=== PATIENT | female | born 1940 | race Caucasian/White ===

== ENCOUNTER → 2016-08-18 | Outpatient (CLI) | payer MEDICARE, BC ==
[~2016-08-18] MED LIST: ASPIRIN EC81 MG PO; COSOPT DROPS 1010 ML OPHTH; DITROPAN5 MG PO; FOLBEE TABLET1 EACH PO; GLUCOPHAGE500 MG PO; HAIR, SKIN & N1 EACH PO; LATANOPROST2.5 ML OPHTH; LIPITOR40 MG PO; OCUVITE EYE +1 EACH PO; PRINIVIL (ZESTRI5 MG PO; TOPROL XL25 MG PO
== END | disposition disaster alternative care site (69) ==
LOC: GRAD 15:33
DX: C18.9 Malignant neoplasm of colon, unspecified (principal); R91.8 Other nonspecific abnormal finding of lung field; E27.8 Other specified disorders of adrenal gland

== ENCOUNTER → 2016-08-29 | Outpatient (CLI) | payer MEDICARE, BC | END | disposition disaster alternative care site (69) | LOC: GKIC 11:23 | DX: C18.9 Malignant neoplasm of colon, unspecified (principal); R91.8 Other nonspecific abnormal finding of lung field | CPT/HCPCS: A9552 ==

== ENCOUNTER 2016-09-08 11:36 | Observation (INO) | payer MEDICARE, BC ==
[~2016-09-08] VITALS: Ht 170.2 cm; Wt 62.2 kg
--- NOTE | ~2016-09-08 | HP ---
PATIENT'S NAME: JODI FARRIS [facility] AGE: 75 Y [address] ROOM: [address] [place], [place] [id number] LOCATION: GPCU ADMIT DATE: 09/08/2016 History & Physical DISCHARGE DATE: FAMILY PHYSICIAN: TONY ASKEW MD ATTENDING PHYSICIAN: Jaz Anderson DATE OF SERVICE: CHIEF COMPLAINT: Left pneumothorax following CT-guided lung biopsy. HISTORY OF PRESENTING ILLNESS: This 75-year-old white female with a previous history of coronary artery disease, hypertension, and recent colon cancer was admitted to [facility] this evening after a procedure for left lung biopsy. Briefly, she had been evaluated by her primary care provider last fall with routine screening colonoscopy. She was found to have a lesion and was forwarded to [place] to see a comsec manager. She was subsequently then referred to a facility in [place] where she underwent segmental colectomy for a presumed colon cancer. She had been scheduled to follow up with Oncology regarding the lesion here, but had not had any adjuvant treatments to this point. During her evaluation by Oncology, she was imaged and found to have a left lung nodule. She did undergo a PET scan testing which revealed activity at the left lung site but no other systemic lesions apparently. This was all per the patient's own recollection. Today, she was brought to [facility] on an outpatient basis for CT-guided lung biopsy by Dr. Tafoya. The procedure was relatively uncomplicated, however, she did develop a left pneumothorax subsequently. Although she was oxygenating adequately, she was placed on supplemental oxygen and it was recommended that she be admitted to [facility] on an observation basis for definitive evaluation and management. On her arrival to the floor, she reports feeling "okay." She does complain of a little pain in the mid back. She denies any significant shortness of breath. She has not had any other chest pains recently. She denies headaches, dizziness, or lightheadedness. No nausea. Her appetite has been good. No difficulty with chewing or swallowing. She eats and drinks a regular diet. She does not monitor her blood sugars, but was recently placed on metformin. Bowels have been moving regularly. She denies any urinary complaints. No numbness, tingling, or weakness in her extremities or any other associated physical or constitutional complaints. ALLERGIES: NO KNOWN DRUG ALLERGIES. PATIENT'S NAME: JODI FARRIS [facility] AGE: 75 Y [address] ROOM: [id number] [place], [place] [address] [facility] ADMIT DATE: 09/08/2016 History & Physical DISCHARGE DATE: FAMILY PHYSICIAN: TONY ASKEW MD ATTENDING PHYSICIAN: Jaz Anderson ILLNESSES: 1. Colon cancer status post resection. 2. Coronary artery disease status post PCI with stenting 4 years ago. 3. Essential hypertension. 4. Diabetes mellitus type 2. 5. Osteoarthritis, generalized. 6. Stress type urinary incontinence. CURRENT MEDICATIONS: 1. Metoprolol 12.5 mg p.o. q.a.m. 2. Lisinopril 5 mg p.o. daily. 3. Metformin 250 mg p.o. daily. 4. Aspirin 81 mg p.o. daily. 5. Oxybutynin 5 mg p.o. daily. 6. Atorvastatin 40 mg p.o. at bedtime. 7. Multivitamin daily. 8. Ocuvite eye vitamin daily. 9. Cosopt ophthalmic drops 1 drop each eye b.i.d. 10. Latanoprost ophthalmic drops 1 drop each eye q.p.m. FAMILY HISTORY: Significant for ovarian cancer in her mother. Her aunt also had breast cancer. Mother had coronary artery disease. Her father from an [place]. SOCIAL HISTORY: She is and currently lives in [place]. She does have a 30+ pack year history of smoking tobacco, but has been quit for 4 years. There is occasional history of alcohol use. REVIEW OF SYSTEMS: As per HPI. All other organ systems reviewed and are negative. OBJECTIVELY: VITAL SIGNS: Temperature 98.3, pulse 66, respirations 18, blood pressure 118/59, O2 saturation 92% on 3 L per nasal cannula. GENERAL: She is frail, but not ill-appearing, lying in the bed, in no acute distress. SKIN: Supple, pink, warm, dry. There are no obvious rashes. HEENT: Otherwise, normocephalic. Sclerae nonicteric. Pupils are equal, round, and reactive to light and accommodation. Extraocular movements appear intact. Nasal turbinates normal in appearance. Oropharynx clear. Mucous membranes are pink and moist. NECK: Supple. No masses or adenopathy. No thyromegaly. No JVD. HEART: No carotid bruits are heard. Chest wall is symmetrical. Heart is PATIENT'S NAME: JODI FARRIS [facility] AGE: 75 Y [address] ROOM: [id number] [place], [place] [id number] LOCATION: GPCU ADMIT DATE: 09/08/2016 History & Physical DISCHARGE DATE: FAMILY PHYSICIAN: TONY ASKEW MD ATTENDING PHYSICIAN: Jaz Anderson regular without murmurs. LUNGS: Diminished at the left lung field with cavernous lungs sounds. Good air movement bilaterally. No wheezes or crackles. ABDOMEN: Soft, nontender. Bowel sounds present. No masses or hepatosplenomegaly. AND RECTAL: Not done. EXTREMITIES: Display no significant clubbing, cyanosis, or edema. NEUROLOGICAL: No focal deficits. LABORATORY AND X-RAY DATA: None available. ASSESSMENT AND PLAN: 1. Left pneumothorax following CT-guided lung biopsy, clinically stable. We will admit for observation. She has already been started on some supplemental oxygen. We will plan to continue with oxygen 3 L per nasal cannula and try to maintain saturations greater than 90%. She does have some risk of hypercapnia given her significant history of tobacco use although there is no documented history of chronic obstructive pulmonary disease. We will encourage good pulmonary hygiene and mobilize carefully. We will plan to repeat chest x-ray in the morning as already scheduled. Depending on her clinical progress, we will consider discharge to home as soon as she is clinically stable versus Pulmonology consultation. I discussed all of this including the possibility of worsening and the need for additional surgical management and she expressed understanding and agreement. 2. Left lung nodule. She is currently undergoing neoplastic workup. We will await evaluation by Hematology and Oncology. She will likely be followed up on an outpatient basis. 3. Colon cancer status post resection, also clinically stable. There is no other evidence for active disease. Favor continued clinical follow up. 4. Coronary artery disease, clinically asymptomatic and stable. Continue with medical management including aspirin therapy, beta-wolf therapy, and statin therapy. 5. Essential hypertension. Appears to be adequately controlled. Plan continue clinical follow up. 6. Diabetes mellitus type 2. We will manage with Accu-Cheks and sliding scale insulin while she is inpatient. We will hold the metformin until discharge. 7. Osteoarthritis, generalized symptomatic treatment. We will use Tylenol. Avoid nonsteroidal antiinflammatory drugs. 8. Deep venous thrombosis prophylaxis. We will utilize serial compression devices while she is bed-bound and mobilize her as soon as she is physically able. Depending on her clinical progress, we will hold off on heparin or Lovenox at least the first 12 hours given the recent biopsy. PATIENT'S NAME: JODI FARRIS [facility] AGE: 75 Y [address] ROOM: [place] [id number] LOCATION: [facility] ADMIT DATE: 09/08/2016 History & Physical DISCHARGE DATE: FAMILY PHYSICIAN: TONY ASKEW MD ATTENDING PHYSICIAN: Jaz Anderson Total time spent 45 minutes. MD OVIDIO SHANNON/modl /[id number] D: [id number] T: [id number] HISTORY & PHYSICAL
[2016-09-08 12:19] LABS: BASOPHIL % 0.7 %; EOSINOPHIL # 0.1 K/uL (0.0-0.5); EOSINOPHIL % 0.8 %; HEMATOCRIT 41.8 % (33.0-46.0); HEMOGLOBIN 14.3 g/dL (10.0-15.0); IMMATURE GRANULOCYTE % 0.2 %; LYMPHOCYTE # 1.8 K/uL (0.8-4.0); LYMPHOCYTE % 29.6 %; MCH 31.2 pg (27.0-34.0); MCHC 34.2 gm/dL (32.0-36.5); MCV 91.3 fl (83.0-98.0); MONOCYTE # 0.6 K/uL (0.0-1.0); MONOCYTE % 10.3 %; MPV 9.1 fl (9.4-12.4); NEUTROPHIL # (ANC) 3.5 K/uL (1.8-7.8); NEUTROPHIL % 58.4 %; NRBC % 0 /100WBC (0-0.00); PLATELET COUNT 330 K/uL (150-450); RBC 4.58 M/uL (3.50-5.50)
[2016-09-08 12:26] LABS: PROTIME 10.3 SECONDS (9.6-11.1)
[2016-09-08 12:31] LABS: ALBUMIN 3.9 gm/dL (3.5-5.0); BLOOD UREA NITROGEN 12 mg/dL (6-24); CALCIUM 8.9 mg/dL (8.5-10.5); CHLORIDE 103 mMol/L (96-110); CO2 30 mMol/L (22-32); CREATININE 0.6 mg/dL (0.5-1.1); ESTIMATED GFR (MDRD EQUATION) > 60; PHOSPHORUS 3.2 mg/dL (2.5-4.9); SODIUM 139 mMol/L (135-145)
--- NOTE | 2016-09-08 23:12 | NUR ---
Pt is a 75 year old female who came to [facility] for an outpatient lung biopsy procedure but after a chest xray was done, a pneumothorax was found. Pt arrived to [facility] for observation @ 2034. Has history of colon resection for cancer, cataracts, torn retina repair, CO in 2007, high cholesterol, hypertension, IBS w/ loose stools, stress incontinence, and heart stent x1. No Known allergies.
--- NOTE | 2016-09-09 04:44 | NUR ---
Significant Event: A/O x3. Afebrile. Denies pain. VSS on 3L. SBP 100-150s. HR 70-80s. LS clear/dim with crackles at times. No complaints of SOB. Bedrest with assistance to Bathroom. ACHS. Last blood sugar was 100. Cooperative with cares. Follow up: chest xray @ 0700
--- NOTE | 2016-09-09 10:40 | NUR ---
Introduced self and role of care management to patient and her sister. Patient lives alone in [place]. Reviewed Obseration status with her and BENTLEY given to patient. She denies discharge needs. Has good friends and neighbors who will help as needed and a daughter in [place]. Hopes to go home today. Will follow.
--- NOTE | 2016-09-09 13:17 | NUR ---
PATIENT GIVEN WRITTEN DISMISSAL INSTRUCTIONS INCLUDING NEW HOME MEDICATION LIST WITH NO NEW MEDS PRESCRIBED. FOLLOW-UP APPOINTMENT TIMES PROVIDED TO PATIENT. PATIENT STATES UNDERSTANDING OF INFORMATION ON NEW MEDS. TELEMETRY DC'D AND PIV REMOVED WITH GAUZE AND COBAN APPLIED. PATIENT DRESSED AND TAKEN TO FRONT OF [facility] VIA WHEELCHAIR ACCOMPANIED BY RN, DAUGHTER AND BELONGINGS AT 1310.
== END 2016-09-09 13:10 | disposition disaster alternative care site (69) ==
LOC: GOPD 11:36 → GPCU 20:38
PROVIDERS: Internal Medicine Hematology & Oncology; ADMIT Radiology Diagnostic Radiology
DX: C34.12 Malignant neoplasm of upper lobe, left bronchus or lung (principal); I25.810 Atherosclerosis of coronary artery bypass graft(s) without angina pectoris; I10 Essential (primary) hypertension; I82.409 Acute embolism and thrombosis of unspecified deep veins of unspecified lower extremity; E11.9 Type 2 diabetes mellitus without complications; M15.9 Polyosteoarthritis, unspecified; Z87.891 Personal history of nicotine dependence; Z85.038 Personal history of other malignant neoplasm of large intestine; Z90.49 Acquired absence of other specified parts of digestive tract; Z79.84 Long term (current) use of oral hypoglycemic drugs; Z79.899 Other long term (current) drug therapy
CPT/HCPCS: G0378; J2001; J7030